=== PATIENT | male | born 1965 | race Caucasian/White ===

== ENCOUNTER 2016-09-12 11:50 | Emergency (ER) | payer MEDICARE ==
[~2016-09-12] VITALS: Ht 177.8 cm; Wt 104.0 kg
[~2016-09-12 11:50] MED LIST: ATOR80TA PO; BENZ1TAB PO; BUPR150T3 PO; CLOP75 PO; PERP8TAB7 PO; SERT100 PO; ST JTAB PO
[2016-09-12 12:06] VITALS: BP 108/80; PULSE 113; RESP 18; TEMP 98.8; O2SAT 97
[2016-09-12] MEDS ORDERED: SERT-129 PO (12:32)
[2016-09-12] MEDS ORDERED: ATOR1TAB18 PO (12:32)
[2016-09-12] MEDS ORDERED: BUPR150T3 PO (12:32)
[2016-09-12] MEDS ORDERED: ASPI81CH CHEW (12:32)
[2016-09-12] MEDS ORDERED: PERP8TAB4 PO (12:32)
[2016-09-12] MEDS ORDERED: BENZ2TAB PO (12:32)
[2016-09-12] MEDS ORDERED: PRIL20CA9 PO (12:32)
[2016-09-12] MEDS ORDERED: PRED20 PO (12:48)
--- NOTE | 2016-09-12 12:56 | PD ---
HPI Chief Complaint: Cold / Flu Symptoms Time Seen by Provider: 12:48 Travel History International Travel<30 days: No Contact w/Intl Traveler<30days: No Traveled to known affect area: No History of Present Illness HPI 51-year-old male presents to the emergency room for evaluation of nonproductive cough and sore throat for the past 2 days. Symptoms started yesterday. States coughing is deep, dry, and hacking. Has kept him up at night. He has been taking Mucinex without relief in symptoms. Denies fever, chills, nausea, vomiting, congestion, and earache. Denies chest pain or shortness of breath. Patient reports persistent elevated heart rate since having a heart attack 2 years ago. EMR confirms. Denies history of diabetes. PFSH Past Medical History Hx Anticoagulant Therapy: Yes (81 mg asa) Arthritis: No Asthma: No Blood Disorders: No Bipolar Disorder: Yes Anxiety: Yes Depression: Yes Heart Rhythm Problems: No Cancer: No Cardiovascular Problems: Yes (2014; 2 stents) High Cholesterol: Yes Chest Pain: No Congestive Heart Failure: No COPD: No Cerebrovascular Accident: No Diabetes: No Diminished Hearing: No Endocrine: No Gastrointestinal Disorders: Yes GERD: No Genitourinary: No Headaches: No Hepatitis: No Hiatal Hernia: No Hypertension: No Kidney Stones: No Musculoskeletal: No Neurologic: No Psychiatric: Yes (DEPRESSION, BIPOLAR) Reproductive: No Respiratory: No Migraines: No Myocardial Infarction: No Renal Failure: No Schizophrenia: Yes Seizures: No Sleep Apnea: No Ulcer: No Influenza Vaccination: No Past Surgical History Abdominal Surgery: No Appendectomy: No Cardiac Surgery: No Cholecystectomy: No Ear Surgery: No Endocrine Surgery: No Eye Surgery: No Genitourinary Surgery: No Gynecologic Surgery: No Neurologic Surgery: No Oral Surgery: No Thoracic Surgery: No Other Surgery: No Social History Alcohol Use: No Tobacco Use: No Substance Use: No Allergies-Medications (Allergen,Severity, Reaction): Coded Allergies: No Known Allergies (Verified , 09/12/16) Reported Meds & Prescriptions Reported Meds & Active Scripts Active Reported Prilosec (Omeprazole) 20 Mg Cap 20 Mg PO DAILY Sertraline (Sertraline HCl) 100 Mg Tab 100 Mg PO DAILY Perphenazine 8 Mg Tab 8 Mg PO DAILY Bupropion HCl ER 24 HR (Bupropion HCl) 150 Mg Tab 150 Mg PO DAILY Benztropine (Benztropine Mesylate) 2 Mg Tab 2 Mg PO HS Atorvastatin (Atorvastatin Calcium) 80 Mg Tab 80 Mg PO HS Aspirin 81 Mg Chew 81 Mg CHEW DAILY Review of Systems Except as stated in HPI: all other systems reviewed are Neg Physical Exam Narrative GENERAL: Well-nourished, well-developed male in no acute distress. Afebrile. Ambulatory. SKIN: Warm and dry. HEAD: Normocephalic. EYES: No scleral icterus. No injection or drainage. ENT: Mucosa pink and moist. No erythema or exudates. No uvular edema. No uvular , palatal, or tonsillar deviation. Airway patent. Nasal turbinates appear normal without nasal blood, purulent drainage or septal hematoma. EARS: Bilateral pinnae and external canals appear within normal limits. Bilateral tympanic membranes without erythema, dullness or perforation. NECK: Supple, trachea midline. No JVD or lymphadenopathy. CARDIOVASCULAR: Tachycardic. Regular rhythm without murmurs, gallops, or rubs. RESPIRATORY: Breath sounds equal bilaterally. No accessory muscle use. No crackles, rales, wheezes, or rhonchi. Data Data Last Documented VS Vital Signs Date Time Temp Pulse Resp B/P Pulse Ox O2 Delivery O2 Flow Rate FiO2 09/12/16 12:06 98.8 113 18 108/80 97 MDM Medical Decision Making Medical Screen Exam Complete: Yes Emergency Medical Condition: Yes Medical Record Reviewed: Yes Differential Diagnosis Bronchitis versus sinusitis versus upper respiratory infection Narrative Course 51-year-old male presents to the emergency room for evaluation of nonproductive cough and sore throat since yesterday. No history of fever at home. Patient is afebrile and well-appearing in the emergency room. Vital signs stable; patient is mildly tachycardic at baseline. Coughing occasionally. No indication of bacterial infection in the ears or throat. Lung sounds are clear and equal bilaterally. Patient had one mild wheeze that he was able to clear with cough. No indication for antibiotics at this time. He'll be discharged with prescription for prednisone and told to follow up with a primary care physician or return to the emergency room for worsening symptoms. He understands and agrees to plan. Diagnosis Primary Impression: Bronchitis Referrals: Primary Care Physician Patient Instructions: Acute Bronchitis (ED), General Instructions Additional Instructions: Rest and drink plenty of fluids. Take prednisone as directed, until gone. Follow-up with a primary care physician. Return to the emergency room for worsening symptoms. Scripts Prednisone 20 Mg Tab40 Mg PO DAILY 5 Days Ref 0 Prov:Liya Harris MD 09/12/16 Disposition: 01 DISCHARGE HOME Condition: Stable Doretha Dias Sep 12, 2016 12:55
== END 2016-09-12 13:28 | disposition home or self-care (01) ==
LOC: PHEFT 11:50
DX: J20.9 Acute bronchitis, unspecified (principal)
CPT/HCPCS: 99283

== ENCOUNTER 2016-09-21 15:48 | Emergency (ER) | payer MEDICARE ==
[~2016-09-21] VITALS: Ht 177.8 cm; Wt 100.0 kg
[~2016-09-21 15:48] MED LIST changes: +ASPI81CH CHEW; +ATOR1TAB18 PO; -ATOR80TA PO; -BENZ1TAB PO; +BENZ2TAB PO; -CLOP75 PO; +PERP8TAB4 PO; -PERP8TAB7 PO; +PRED20 PO; +PRIL20CA9 PO; +SERT-129 PO; -SERT100 PO; -ST JTAB PO
[2016-09-21 15:50] VITALS: BP 117/78; PULSE 104; RESP 16; TEMP 98.4; O2SAT 96
[2016-09-21] MEDS ORDERED: ALBUAER3 INH (17:13)
[2016-09-21] MEDS ORDERED: AZIT500T2 PO (17:13)
[2016-09-21] MEDS ORDERED: BENZ100 PO (17:13)
[2016-09-21] MEDS ORDERED: PRED-503 PO (17:13)
[2016-09-21] MEDS ORDERED: predniSONE 20 MG TAB PO ONE (17:15)
[2016-09-21] MEDS ORDERED: RESP: ALBUTEROL 2.5 MG/3 ML NEB (SCH) INH ONE (17:15)
--- NOTE | 2016-09-21 17:15 | PD ---
HPI Chief Complaint: Cold / Flu Symptoms Time Seen by Provider: 17:11 Travel History International Travel<30 days: No Contact w/Intl Traveler<30days: No Traveled to known affect area: No History of Present Illness HPI 51-year-old male presents to the emergency Department with complaint of continued cough and chest congestion for 10 days. He was seen at [facility] emergency department 10 days ago, diagnosed with bronchitis, and was treated with a five-day course of steroids with no improvement in symptoms. He tried following up with his primary care provider but they could not get him in. Reports continuous aggravated productive cough. Denies nasal congestion, ear pain, throat pain. Denies chest pain or shortness of breath. Denies hemoptysis. is also sick with similar symptoms. No known relieving or aggravating factors. Denies history of asthma, COPD. Denies tobacco use. History of heart attack. Takes aspirin daily. Dr. Joel is primary care provider. No known allergies. No other modifying factors or associated signs and symptoms. PFSH Past Medical History Hx Anticoagulant Therapy: Yes (81 ASA) Arthritis: No Asthma: No Blood Disorders: No Bipolar Disorder: Yes Anxiety: Yes Depression: Yes Heart Rhythm Problems: No Cancer: No Cardiovascular Problems: Yes (2015 [place] WITH 2 STENTS) High Cholesterol: Yes Chest Pain: No Congestive Heart Failure: No COPD: No Cerebrovascular Accident: No Diabetes: No Diminished Hearing: No Endocrine: No Gastrointestinal Disorders: Yes GERD: No Genitourinary: No Headaches: No Hepatitis: No Hiatal Hernia: No Hypertension: No Kidney Stones: No Musculoskeletal: No Neurologic: No Psychiatric: Yes (DEPRESSION, BIPOLAR) Reproductive: No Respiratory: No Migraines: No Myocardial Infarction: No Renal Failure: No Schizophrenia: Yes Seizures: No Sleep Apnea: No Ulcer: No Past Surgical History Abdominal Surgery: No Appendectomy: No Cardiac Surgery: No Cholecystectomy: No Ear Surgery: No Endocrine Surgery: No Eye Surgery: No Genitourinary Surgery: No Gynecologic Surgery: No Neurologic Surgery: No Oral Surgery: No Thoracic Surgery: No Other Surgery: No Social History Alcohol Use: No Tobacco Use: No Substance Use: No Allergies-Medications (Allergen,Severity, Reaction): Coded Allergies: No Known Allergies (Verified , 09/21/16) Reported Meds & Prescriptions Reported Meds & Active Scripts Active Proair Hfa 8.5 GM Inh (Albuterol Sulfate) 90 Mcg/Act Aer 2 Puff INH Q4-6H PRN 108 mcg/actuation Tessalon Perles (Benzonatate) 100 Mg Cap 100 Mg PO TID PRN Azithromycin 500 Mg Tab 500 Mg PO DAILY Deltasone (Prednisone) 20 Mg Tab 40 Mg PO DAILY 4 Days start 09/22/2016 Prednisone 20 Mg Tab 40 Mg PO DAILY 5 Days Reported Prilosec (Omeprazole) 20 Mg Cap 20 Mg PO DAILY Sertraline (Sertraline HCl) 100 Mg Tab 100 Mg PO DAILY Perphenazine 8 Mg Tab 8 Mg PO DAILY Bupropion HCl ER 24 HR (Bupropion HCl) 150 Mg Tab 150 Mg PO DAILY Benztropine (Benztropine Mesylate) 2 Mg Tab 2 Mg PO HS Atorvastatin (Atorvastatin Calcium) 80 Mg Tab 80 Mg PO HS Aspirin 81 Mg Chew 81 Mg CHEW DAILY Review of Systems Except as stated in HPI: all other systems reviewed are Neg Physical Exam Narrative GENERAL: Well-nourished, well-developed male patient, in no acute distress SKIN: Warm and dry. HEAD: Atraumatic. Normocephalic. EYES: Pupils equal and round. No scleral icterus. No injection or drainage. ENT: Mucosa pink and moist. Airway patent. EARS: Bilateral pinnae and external canals appear within normal limits. NECK: Trachea midline. No lymphadenopathy. CARDIOVASCULAR: Regular rate and rhythm. No murmur appreciated. RESPIRATORY: No accessory muscle use. Lungs decreased to bilateral bases to auscultation. Breath sounds equal bilaterally. No retractions or tachypnea. No Audible wheezing noted. Frequent dry cough during physical exam. GASTROINTESTINAL: Abdomen soft, non-tender, nondistended. Hepatic and splenic margins not palpable. Bowel sounds are active 4 quadrants. MUSCULOSKELETAL: No obvious deformities. No clubbing. No cyanosis. No edema. NEUROLOGICAL: Awake and alert. Oriented 3. No obvious cranial nerve deficits. Motor grossly within normal limits. Normal speech. Moves all extremities. 5/5 strength to all extremities. PSYCHIATRIC: Appropriate mood and affect; insight and judgment normal. Data Data Last Documented VS Vital Signs Date Time Temp Pulse Resp B/P Pulse Ox O2 Delivery O2 Flow Rate FiO2 09/21/16 15:50 98.4 104 16 117/78 96 Room Air Orders Chest, Single Ap (09/21/16 17:10) Prednisone (Deltasone) (09/21/16 17:15) Albuterol Neb (Albuterol Neb) (09/21/16 17:15) [facility] Medical Decision Making Medical Screen Exam Complete: Yes Emergency Medical Condition: Yes Medical Record Reviewed: Yes Differential Diagnosis Bronchitis, pneumonia, viral illness Narrative Course 51-year-old male with cough and chest congestion 10 days. He was seen at [facility] on August 2018 given a five-day course of prednisone for bronchitis. Patient is afebrile denies fever, chills, nausea, vomiting. His lungs are decreased to bilateral bases. He has persistent dry cough during physical exam. Denies chest pain or shortness of breath. Albuterol nebulizer 1 and Deltasone ordered. Chest x-ray ordered. 174: Chest x-ray with no acute disease. Patient reports improvement in symptoms. Cough exacerbation has seemed to decreased while in the room on reexamination. Azithromycin, Deltasone, Pro Air inhaler, Tessalon Perles prescribed for home. Patient is medically cleared and stable for discharge. Discussed reasons to return to the emergency department. Instructed patient to follow up with primary care provider. Patient agrees with treatment plan. The patients vital signs are stable and the patient is stable for outpatient follow- up and treatment. Patient discharged home, stable and in no acute distress. Diagnosis Primary Impression: Bronchitis Referrals: Primary Care Physician Patient Instructions: Acute Bronchitis (ED), General Instructions Departure Forms: Tests/Procedures, Work Release Enter return to work date: Sep 23, 2016 Additional Instructions: Use Albuterol inhaler as prescribed Take oral steroids as prescribed and complete full course Use Tessalon Perles as prescribed to decrease coughing spasms [id number] decongestants or antihistamines as directed and as needed for symptom management Your cough can last 4-6 weeks Drink plenty of fluids to prevent dehydration Use hot air humidifier to decrease cough exacerbation Turn off ceiling fans and sleep with head of bed elevated Avoid triggers such as second hand smoke, dust, known allergens Follow-up with your primary care provider Return to the emergency department immediately with worsening of symptoms Med/Other Pt SpecificInfo: Prescription(s) given Scripts Albuterol 8.5 GM Inh (Proair Hfa 8.5 GM Inh)90 Mcg/Act Aer2 Puff INH Q4-6H PRN ( SOB/WHEEZING) #1 INHALER Ref 0 108 mcg/actuation Prov:Angelia Lou 09/21/16 Benzonatate (Tessalon Perles)100 Mg [id number] Mg PO TID PRN (COUGH) #20 CAP Ref 0 Prov:Angelia Lou 09/21/16 Azithromycin 500 Mg [id number] Mg PO DAILY #5 TAB Ref 0 Prov:Angelia Lou 09/21/16 Prednisone (Deltasone)20 Mg Tab40 Mg PO DAILY 4 Days Ref 0 start 09/22/2016 Prov:Angelia Lou 09/21/16 Disposition: 01 DISCHARGE HOME Condition: Stable Angelia Lou Sep 21, 2016 17:15
--- NOTE | 2016-09-21 17:34 | RADRPT ---
EXAM DATE/TIME: 09/21/2016 17:20 [facility] COMPARISON: CHEST SINGLE AP, August 06, 2015, 8:02. INDICATIONS : Cough. MEDICAL HISTORY : None. SURGICAL HISTORY : None. ENCOUNTER: Initial ACUITY: 2 weeks PAIN SCORE: 0/10 LOCATION: Bilateral chest FINDINGS: A single view of the chest demonstrates the lungs to be symmetrically aerated without evidence of mas s, infiltrate or effusion. The cardiomediastinal contours are unremarkable. Osseous structures are intact. CONCLUSION: No acute disease. Matheus De La Garza MD on September 21, 2016 at 17:32 Board Certified Radiologist. This report was verified electronically.
== END 2016-09-21 18:07 | disposition home or self-care (01) ==
LOC: NEPB 15:48
DX: J40 Bronchitis, not specified as acute or chronic (principal); I25.2 Old myocardial infarction; Z79.82 Long term (current) use of aspirin
CPT/HCPCS: 71010; 94664; 99283; J7512; J7613

== ENCOUNTER 2017-02-21 18:33 | Inpatient (IN) | payer MEDICARE ==
[~2017-02-21] VITALS: Ht 177.8 cm; Wt 104.0 kg
[~2017-02-21 18:33] MED LIST changes: +ALBUAER3 INH; +AZIT500T2 PO; +BENZ100 PO; +PRED-503 PO
[2017-02-21 18:35] VITALS: BP 119/79; PULSE 118; RESP 20; TEMP 98.5; O2SAT 94
--- NOTE | 2017-02-21 19:44 | PD ---
HPI Chief Complaint: Cardiac Complaint Time Seen by Provider: 19:44 Travel History International Travel<30 days: No Contact w/Intl Traveler<30days: No Traveled to known affect area: No History of Present Illness HPI 51-year-old male with history of CAD, cardiac catheter with stent placement in 2014, bipolar disorder, presents to the emergency department today for evaluation at the instruction of his cardiovascular surgeon Dr. Joel. Patient states over the last day or so he has been having intermittent heaviness in his bilateral upper extremities. It is not exacerbated with activity or alleviated with rest. He states it doesn't matter what he is doing when it occurs. Last episode was this morning. It is not associated with chest pain, shortness of breath, nausea, vomiting, or lightheadedness. Patient states the symptom is similar to when he had his first VT. He has had no recent illnesses, fever, chills. No other symptoms to report. PFSH Past Medical History Hx Anticoagulant Therapy: Yes (81 ASA) Arthritis: No Asthma: No Blood Disorders: No Bipolar Disorder: Yes Anxiety: Yes Depression: Yes Heart Rhythm Problems: No Cancer: No Cardiovascular Problems: Yes High Cholesterol: Yes Chest Pain: No Congestive Heart Failure: No COPD: No Cerebrovascular Accident: No Diabetes: No Diminished Hearing: No Endocrine: No Gastrointestinal Disorders: Yes GERD: No Genitourinary: No Headaches: No Hepatitis: No Hiatal Hernia: No Hypertension: No Kidney Stones: No Musculoskeletal: No Neurologic: No Psychiatric: Yes (DEPRESSION, BIPOLAR) Reproductive: No Respiratory: No Migraines: No Myocardial Infarction: No Renal Failure: No Schizophrenia: Yes Seizures: No Sleep Apnea: No Ulcer: No Past Surgical History Abdominal Surgery: No Appendectomy: No Cardiac Surgery: No Cholecystectomy: No Ear Surgery: No Endocrine Surgery: No Eye Surgery: No Genitourinary Surgery: No Gynecologic Surgery: No Neurologic Surgery: No Oral Surgery: No Thoracic Surgery: No Other Surgery: No Social History Alcohol Use: No Tobacco Use: No Substance Use: No Allergies-Medications (Allergen,Severity, Reaction): Coded Allergies: No Known Allergies (Verified , 02/21/17) Reported Meds & Prescriptions Reported Meds & Active Scripts Active Proair Hfa 8.5 GM Inh (Albuterol Sulfate) 90 Mcg/Act Aer 2 Puff INH Q4-6H PRN 108 mcg/actuation Tessalon Perles (Benzonatate) 100 Mg Cap 100 Mg PO TID PRN Reported Perphenazine 2 Mg Tab 2 Mg PO HS Sertraline (Sertraline HCl) 100 Mg Tab 100 Mg PO DAILY Bupropion HCl ER 24 HR (Bupropion HCl) 150 Mg Tab 150 Mg PO DAILY Atorvastatin (Atorvastatin Calcium) 80 Mg Tab 80 Mg PO HS Aspirin 81 Mg Chew 81 Mg CHEW DAILY Review of Systems Except as stated in HPI: all other systems reviewed are Neg Physical Exam Narrative GENERAL: Well-nourished female patient, in no acute distress SKIN: Focused skin assessment warm/dry. HEAD: Atraumatic. Normocephalic. EYES: Pupils equal and round. No scleral icterus. No injection or drainage. ENT: No nasal bleeding or discharge. Mucous membranes pink and moist. NECK: Trachea midline. No JVD. CARDIOVASCULAR: Tachycardic rate and rhythm. No murmur appreciated. RESPIRATORY: No accessory muscle use. Clear to auscultation. Breath sounds equal bilaterally. GASTROINTESTINAL: Abdomen soft, non-tender, nondistended. Hepatic and splenic margins not palpable. MUSCULOSKELETAL: No obvious deformities. No clubbing. No cyanosis. No edema. NEUROLOGICAL: Awake and alert. No obvious cranial nerve deficits. Motor grossly within normal limits. Normal speech. PSYCHIATRIC: Appropriate mood and affect; insight and judgment normal. Data Data Last Documented VS Vital Signs Date Time Temp Pulse Resp B/P Pulse Ox O2 Delivery O2 Flow Rate FiO2 02/21/17 21:00 110 21 109/80 95 Room Air 02/21/17 18:35 98.5 Orders Electrocardiogram (02/21/17 ) Electrocardiogram (02/21/17 19:37) Basic Metabolic Panel (Bmp) (02/21/17 19:37) Ckmb (Isoenzyme) Profile (02/21/17 19:37) Complete Blood Count With Diff (02/21/17 19:37) Magnesium (Mg) (02/21/17 19:37) Prothrombin Time / Inr (Pt) (02/21/17 19:37) Act Partial Throm Time (Ptt) (02/21/17 19:37) Troponin I (02/21/17 19:37) Chest, Single Ap (02/21/17 19:37) Ecg Monitoring (02/21/17 19:37) Bilateral Bp Monitoring (02/21/17 19:37) Iv Access Insert/Monitor (02/21/17 19:37) Oximetry (02/21/17 19:37) Oxygen Administration (02/21/17 19:37) Sodium Chloride 0.9% Flush (Ns Flush) (02/21/17 19:45) Labs Laboratory Tests Test 02/21/17 20:00 White Blood Count 10.2 TH/MM3 Red Blood Count 4.98 MIL/MM3 Hemoglobin 14.2 GM/DL Hematocrit 43.0 % Mean Corpuscular Volume 86.3 FL Mean Corpuscular Hemoglobin 28.5 PG Mean Corpuscular Hemoglobin 33.0 % Concent Red Cell Distribution Width 14.3 % Platelet Count 392 TH/MM3 Mean Platelet Volume 7.4 FL Neutrophils (%) (Auto) 57.7 % Lymphocytes (%) (Auto) 29.0 % Monocytes (%) (Auto) 9.9 % Eosinophils (%) (Auto) 2.7 % Basophils (%) (Auto) 0.7 % Neutrophils # (Auto) 5.9 TH/MM3 Lymphocytes # (Auto) 3.0 TH/MM3 Monocytes # (Auto) 1.0 TH/MM3 Eosinophils # (Auto) 0.3 TH/MM3 Basophils # (Auto) 0.1 TH/MM3 CBC Comment DIFF FINAL Differential Comment Prothrombin Time 11.4 SEC Prothromb Time International 1.0 RATIO Ratio Activated Partial 24.8 SEC Thromboplast Time Sodium Level 137 MEQ/L Potassium Level 4.1 MEQ/L Chloride Level 103 MEQ/L Carbon Dioxide Level 26.9 MEQ/L Anion Gap 7 MEQ/L Blood Urea Nitrogen 13 MG/DL Creatinine 0.96 MG/DL Estimat Glomerular Filtration 82 ML/MIN Rate Random Glucose 94 MG/DL Calcium Level 9.3 MG/DL Magnesium Level 1.8 MG/DL Total Creatine Kinase 75 U/L Troponin I 0.24 NG/ML [facility] Medical Decision Making Medical Screen Exam Complete: Yes Emergency Medical Condition: Yes Medical Record Reviewed: Yes Differential Diagnosis ACS versus neuropathy versus radiculopathy versus anxiety Narrative Course 51-year-old male presents to the emergency department for evaluation. Patient describes his symptoms as a heaviness in his bilateral upper extremities. It is intermittent. Currently he is asymptomatic. His vital signs are stable. Tachycardic. EKG is reviewed by myself and my attending physician with no ST elevation or depression. EKG compared to in 2015 was abnormal at that time. Laboratory Tests Test 02/21/17 20:00 White Blood Count 10.2 TH/MM3 Red Blood Count 4.98 MIL/MM3 Hemoglobin 14.2 GM/DL Hematocrit 43.0 % Mean Corpuscular Volume 86.3 FL Mean Corpuscular Hemoglobin 28.5 PG Mean Corpuscular Hemoglobin 33.0 % Concent Red Cell Distribution Width 14.3 % Platelet Count 392 TH/MM3 Mean Platelet Volume 7.4 FL Neutrophils (%) (Auto) 57.7 % Lymphocytes (%) (Auto) 29.0 % Monocytes (%) (Auto) 9.9 % Eosinophils (%) (Auto) 2.7 % Basophils (%) (Auto) 0.7 % Neutrophils # (Auto) 5.9 TH/MM3 Lymphocytes # (Auto) 3.0 TH/MM3 Monocytes # (Auto) 1.0 TH/MM3 Eosinophils # (Auto) 0.3 TH/MM3 Basophils # (Auto) 0.1 TH/MM3 CBC Comment DIFF FINAL Differential Comment Prothrombin Time 11.4 SEC Prothromb Time International 1.0 RATIO Ratio Activated Partial 24.8 SEC Thromboplast Time Sodium Level 137 MEQ/L Potassium Level 4.1 MEQ/L Chloride Level 103 MEQ/L Carbon Dioxide Level 26.9 MEQ/L Anion Gap 7 MEQ/L Blood Urea Nitrogen 13 MG/DL Creatinine 0.96 MG/DL Estimat Glomerular Filtration 82 ML/MIN Rate Random Glucose 94 MG/DL Calcium Level 9.3 MG/DL Magnesium Level 1.8 MG/DL Total Creatine Kinase 75 U/L Troponin I 0.24 NG/ML I discussed the patient with Dr. Valentino, cardiovascular surgeon covering for Dr. Joel. He requests the patient be placed on a heparin drip and admitted to medicine for possible cardiac catheterization tomorrow. Diagnosis Primary Impression: Atypical chest pain Additional Impressions: Elevated troponin CAD (coronary artery disease) Qualified Code: I25.10 - Coronary artery disease involving [place] heart, angina presence unspecified, unspecified vessel or lesion type Admitting Information Admitting Physician Requests: Admit Condition: Stable BraedenFloresIrmajennifer ORDOÑEZ Feb 21, 2017 19:44
[2017-02-21] MEDS ORDERED: SODIUM CHLORIDE 0.9% FLUSH 10 ML FLUSH IVF PRN (19:45)
--- NOTE | 2017-02-21 19:57 | RADRPT ---
EXAM DATE/TIME: 02/21/2017 19:32 [facility] COMPARISON: CHEST SINGLE AP, September 21, 2016, 17:20. INDICATIONS : Chest discomfort and bilateral arm pain. MEDICAL HISTORY : Hypercholesterolemia. SURGICAL HISTORY : None. ENCOUNTER: Initial ACUITY: 2 days PAIN SCORE: 5/10 LOCATION: Bilateral chest FINDINGS: A single view of the chest demonstrates the lungs to be symmetrically aerated without evidence of mas s, infiltrate or effusion. The cardiomediastinal contours are unremarkable. Osseous structures are intact. CONCLUSION: No acute disease. Jamal Briggs MD FACR on February 21, 2017 at 19:56 Board Certified Radiologist. This report was verified electronically.
[2017-02-21] MEDS ORDERED: PERP2TAB18 PO (20:02)
[2017-02-21 20:03] VITALS: BP 109/75; PULSE 107; RESP 15; O2SAT 97
[2017-02-21 20:11] VITALS: BP 113/71; PULSE 107; RESP 15; O2SAT 95
[2017-02-21 20:22] LABS: AUTOMATED NEUTROPHIL # 5.9 TH/MM3 (1.8-7.7); BASOPHIL # 0.1 TH/MM3 (0-0.2); BASOPHIL % 0.7 % (0.0-2.0); EOSINOPHIL # 0.3 TH/MM3 (0-0.4); EOSINOPHIL % 2.7 % (0.0-4.0); HEMO FLAGS DIFF FINAL; MEAN CELL VOLUME 86.3 FL (80.0-100.0); MEAN CORPUSCULAR HEMOGLOBIN 28.5 PG (27.0-34.0); MONO % 9.9 % (0.0-8.0); NEUT % 57.7 % (16.0-70.0); PLATELET COUNT 392 TH/MM3 (150-450); RED BLOOD COUNT 4.98 MIL/MM3 (4.50-5.90); RED CELL DISTRIBUTION WIDTH 14.3 % (11.6-17.2); WHITE BLOOD COUNT 10.2 TH/MM3 (4.0-11.0)
[2017-02-21 20:38] LABS: BICARBONATE 26.9 MEQ/L (21.0-32.0); MAGNESIUM 1.8 MG/DL (1.5-2.5); POTASSIUM 4.1 MEQ/L (3.5-5.1)
[2017-02-21 20:44] LABS: APTT (PATIENT) 24.8 SEC (24.3-30.1); PROTHROMBIN TIME - PATIENT 11.4 SEC (9.8-11.6)
[2017-02-21 21:00] VITALS: BP 109/80; PULSE 110; RESP 21; O2SAT 95
[2017-02-21] MEDS ORDERED: HEPARIN-D5W INJ 250 ML IV SCH (21:45)
[2017-02-21] MEDS ORDERED: HEPARIN SODIUM - IV 10,000 UNITS/10 ML VIAL IV ONE (21:45)
[2017-02-21] MEDS ORDERED: SODIUM CHLORIDE 0.9% FLUSH 10 ML FLUSH IV FLUSH PRN (22:00)
[2017-02-21] MEDS ORDERED: NALOXONE HCL 0.4 MG/ML AMP IV PRN (22:00)
--- NOTE | 2017-02-21 22:55 | HHI.HP ---
[facility] Hermann Marroquin M.D. Admission Diagnosis BUE heaviness/atypical chest pain; elevated troponin Diagnoses: (1) NSTEMI (non-ST elevated myocardial infarction) Chief Complaint: Bilateral pain on underside of arms Travel History International Travel<30 Days: No Contact w/Intl Traveler <30 Da: No Traveled to Known Affected Are: No History of Present Illness Written by Eliz Linares, acting as scribe for Dr. Heard on 02/21/17 at 23:00. For the past week, the patient reports that he has been having intermittent pain under arms, not accompanied by shortness of breath, diaphoresis, nausea, or vomiting. He denies the pain radiating anywhere (though when portraying where his pain is, he says it's under the arms and then runs his hands down the inside of arms down to the wrist) and denies fever, shortness of breath, syncope , abdominal pain, black stools, or bloody stools. Dr. Joel was contacted via telephone by the patient and his and he told him to come to the hospital for evaluation because symptoms were similar to prior [place]. Review of Systems Except as stated in HPI: all other systems reviewed are Neg Past Family Social History Past Medical History CAD with stents x 2 (July 2015) - Plavix d/c'd in August CHF EF - 23 - 24% (per patient's ) without defibrillator Bipolar Disorder Schizophrenia Hyperlipidemia Denies diabetes mellitus, hypertension, atrial fibrillation, COPD emphysema, MYAH , liver problems, kidney problems, DVT, PE, CVA, seizures, or thyroid problems . Past Surgical History Stents x 16 July 2015 . Reported Medications Reported Meds & Active Scripts Active Proair Hfa 8.5 GM Inh (Albuterol Sulfate) 90 Mcg/Act Aer 2 Puff INH Q4-6H PRN 108 mcg/actuation Tessalon Perles (Benzonatate) 100 Mg Cap 100 Mg PO TID PRN Reported Perphenazine 2 Mg Tab 2 Mg PO HS Sertraline (Sertraline HCl) 100 Mg Tab 100 Mg PO DAILY Bupropion HCl ER 24 HR (Bupropion HCl) 150 Mg Tab 150 Mg PO DAILY Atorvastatin (Atorvastatin Calcium) 80 Mg Tab 80 Mg PO HS Aspirin 81 Mg Chew 81 Mg CHEW DAILY . Allergies: Coded Allergies: No Known Allergies (Verified , 02/21/17) Active Ordered Medications Current Medications Sodium Chloride (NS Flush) 2 ml UNSCH PRN IVF FLUSH AFTER USING IV ACCESS; Start 02/21/17 at 19:45; Stop 02/21/17 at 21:58; Status DC Heparin Sodium (Porcine) (Heparin Inj) 4,000 units ONCE ONCE IV Last administered on 02/21/17t 22:05; Start 02/21/17 at 21:45; Stop 02/21/17 at 21:46 ; Status DC Heparin Sodium (Porcine) (Heparin Inj) 5,000 units UNSCH PRN IV APTT LESS THAN 25; Start 02/22/17 at 03:45 Heparin Sodium (Porcine) 2500 units 2,500 units UNSCH PRN IV APTT 25 TO 39; Start 02/22/17 at 03:45 Heparin Sodium/ Dextrose (Heparin-D5W Inj) 250 ml @ 0 mls/hr TITRATE IV Last administered on 02/21/17t 22:10; Start 02/21/17 at 21:45 Sodium Chloride (NS Flush) 2 ml UNSCH PRN IV FLUSH FLUSH AFTER USING IV ACCESS ; Start 02/21/17 at 22:00 Sodium Chloride (NS Flush) 2 ml BID IV FLUSH ; Start 02/22/17 at 09:00 Naloxone HCl (Narcan Inj) 0.4 mg UNSCH PRN IV SEE LABEL COMMENTS; Start at 22:00 . Family History Mother with hypertension and reports a "bad heart" . Social History Tobacco: denies ever Alcohol: denies Illicit Drugs: denies . Physical Exam Vital Signs Vital Signs Date Time Temp Pulse Resp B/P Pulse Ox O2 Delivery O2 Flow Rate FiO2 02/21/17 21:00 110 21 109/80 95 Room Air 02/21/17 20:11 107 15 113/71 95 Room Air 02/21/17 20:03 108 17 97 Room Air 02/21/17 20:03 107 15 109/75 97 Room Air 02/21/17 20:03 97 Room Air 02/21/17 18:35 98.5 118 20 119/79 94 Room Air Physical Exam GENERAL: This is an anxious appearing male patient, in no apparent distress. SKIN: No rashes, ecchymoses or lesions. Cool and dry. HEAD: Atraumatic. Normocephalic. EYES: No scleral icterus. No injection or drainage. ENT: Nose without bleeding, purulent drainage. NECK: Trachea midline. No JVD or lymphadenopathy. CARDIOVASCULAR: Regular rate and rhythm without murmurs, gallops, or rubs. RESPIRATORY: Clear to auscultation. Breath sounds equal bilaterally. No wheezes , rales, or rhonchi. GASTROINTESTINAL: Abdomen soft, non-tender, nondistended. No guarding. MUSCULOSKELETAL: Extremities without clubbing, cyanosis, or edema. No calf tenderness. NEUROLOGICAL: Awake and alert. Motor and sensory grossly within normal limits. Normal speech. . . Laboratory Laboratory Tests Test 02/21/17 20:00 White Blood Count 10.2 Red Blood Count 4.98 Hemoglobin 14.2 Hematocrit 43.0 Mean Corpuscular Volume 86.3 Mean Corpuscular Hemoglobin 28.5 Mean Corpuscular Hemoglobin 33.0 Concent Red Cell Distribution Width 14.3 Platelet Count 392 Mean Platelet Volume 7.4 Neutrophils (%) (Auto) 57.7 Lymphocytes (%) (Auto) 29.0 Monocytes (%) (Auto) 9.9 Eosinophils (%) (Auto) 2.7 Basophils (%) (Auto) 0.7 Neutrophils # (Auto) 5.9 Lymphocytes # (Auto) 3.0 Monocytes # (Auto) 1.0 Eosinophils # (Auto) 0.3 Basophils # (Auto) 0.1 CBC Comment DIFF FINAL Differential Comment Prothrombin Time 11.4 Prothromb Time International 1.0 Ratio Activated Partial 24.8 Thromboplast Time Sodium Level 137 Potassium Level 4.1 Chloride Level 103 Carbon Dioxide Level 26.9 Anion Gap 7 Blood Urea Nitrogen 13 Creatinine 0.96 Estimat Glomerular Filtration 82 Rate Random Glucose 94 Calcium Level 9.3 Magnesium Level 1.8 Total Creatine Kinase 75 Troponin I 0.24 Result Diagram: 02/21/17199902/21/171999 Imaging Last Impressions Chest X-Ray 02/21/171936 Signed Impressions: Service Date/Time: Tuesday, February 21, 2017 19:32 - CONCLUSION: No acute disease. Jamal Briggs MD FACR . Assessment and Plan Problem List: (1) NSTEMI (non-ST elevated myocardial infarction) ICD Code: I21.4 Status: Acute Assessment and Plan NSTEMI - Initial Troponin I - 0.24 - NPO after midnight - cardiology consultation - monitor serial cardiac enzymes and EKGs - 12-lead EKG personally reviewed sinus tachycardia with anterolateral Q waves and intraventricular conduction delay noted - IV heparin drip - Continuous cardiac telemetry to monitor for cardiac arrhythmias - Monitor vital signs every 4 hours Schizophrenia/Bipolar disorder - continue home medications DVT prophylaxis - on IV heparin . Discussed Condition With ER physician, patient, patient's (an RN), and RN Physician Certification 2 Midnight Certification Type: Admission for Inpatient Services Order for Inpatient Services The services are ordered in accordance with Medicare regulations or non- Medicare payer requirements, as applicable. In the case of services not specified as inpatient-only, they are appropriately provided as inpatient services in accordance with the 2-midnight benchmark. Estimated LOS (days): 3 days is the estimated time the patient will need to remain in the hospital, assuming treatment plan goals are met and no additional complications. Post-Hospital Plan: Home Eliz Linares Feb 21, 2017 22:55
[2017-02-21 23:34] VITALS: BP 114/67; PULSE 112; TEMP 98.4; O2SAT 95
[2017-02-22] VITALS (19 sets, daily range): BP systolic 101–119; BP diastolic 67–78; PULSE 91–138; RESP 16–18; TEMP 97.6–98; O2SAT 92–98
[2017-02-22] MEDS ORDERED: ALBUTEROL SULFATE 90 MCG/ACT HFA 18 GM INHALER INH PRN (00:15)
[2017-02-22] MEDS ORDERED: BENZTROPINE MESYLATE 2 MG TAB PO ONE (00:15)
[2017-02-22] MEDS ORDERED: BENZ0.5T PO (00:22)
[2017-02-22] MEDS ORDERED: PERP8TAB16 PO (00:22)
[2017-02-22 03:34] LABS: AUTOMATED NEUTROPHIL # 5.9 TH/MM3 (1.8-7.7); BASOPHIL # 0.1 TH/MM3 (0-0.2); BASOPHIL % 0.5 % (0.0-2.0); EOSINOPHIL # 0.3 TH/MM3 (0-0.4); EOSINOPHIL % 2.6 % (0.0-4.0); HEMATOCRIT 39.1 % (39.0-51.0); HEMO FLAGS DIFF FINAL; LYMPH % 33.3 % (9.0-44.0); LYMPHOCYTE # 3.6 TH/MM3 (1.0-4.8); MEAN CELL VOLUME 85.8 FL (80.0-100.0); MEAN CORPUSCULAR HEMOGLOBIN 28.7 PG (27.0-34.0); MEAN CORPUSCULAR HGB CONC 33.5 % (32.0-36.0); MONO % 8.8 % (0.0-8.0); NEUT % 54.8 % (16.0-70.0); PLATELET COUNT 339 TH/MM3 (150-450); RED BLOOD COUNT 4.56 MIL/MM3 (4.50-5.90); WHITE BLOOD COUNT 10.7 TH/MM3 (4.0-11.0)
[2017-02-22 03:43] LABS: APTT (PATIENT) 34.1 SEC (24.3-30.1)
[2017-02-22] MEDS ORDERED: HEPARIN SODIUM - IV 10,000 UNITS/10 ML VIAL IV PRN ×2 (03:45)
[2017-02-22 03:51] LABS: BICARBONATE 27.9 MEQ/L (21.0-32.0); POTASSIUM 3.8 MEQ/L (3.5-5.1)
[2017-02-22] MEDS ORDERED: SODIUM CHLOR 0.9% 1000 ML INJ 1,000 ML IV SCH (07:54)
--- NOTE | 2017-02-22 07:55 | PD.CONS ---
HPI Service CV Consult Requested By Reason for Consult chest pain Primary Care Physician Hermann Marroquin M.D. History of Present Illness Here with CAD s/p STEMI s/p PCI LAD with residual disease in a small diagonal and OM (July 2015), ischemia cardiomyopathy EF 35 to 40%, HTN and hyperlipidemia admitted for angina. He states for the past week he has been having intermittent bilateral upper extremity pain that is similar to that which he had prior to his MT. He states it is nearly everyday. He denies any associated symptoms. There are no precipitating or alleviating factors. He states it lasts hours. (Jw Sarmiento) Review of Systems Consitutional: DENIES: Fatigue, Fever, Chills, Weight gain, Weight loss Eyes: DENIES: Amaurosis Fugax, Change in vision HEENT: DENIES: Lightheadedness, Change in hearing Respiratory: DENIES: See HPI, Cough, Snoring, Shortness of breath, Wheezing, Sputum production Cardiovascular: DENIES: See HPI, Chest pain, Palpitations, Syncope, Tachycardia Gastrointestinal: DENIES: Nausea, Vomiting, Change in bowel habits, Reflux, Bloody stools, Melena Genitourinary: DENIES: Urinary incontinence, Difficulty voiding Integumentary: DENIES: Rash Neurologic: DENIES: Tingling or numbness, Memory problems, Poor Balance, Stroke symptoms Musculoskeletal: DENIES: Joint pain, Muscle pain, Limited range of motion, Back pain Psychiatric: DENIES: Anxiety, Depression, Sleep disturbances Hematologic: DENIES: Bruising tendencies, Bleeding tendencies Endocrine: DENIES: Weight gain, Weight loss, Thyroid disease (Jw Sarmiento ) Past Family Social History Allergies: Coded Allergies: No Known Allergies (Verified , 02/21/17) Past Medical History see HPI bipolar disorder schizophrenia Past Surgical History see HPI Reported Medications Reported Meds & Active Scripts Active Proair Hfa 8.5 GM Inh (Albuterol Sulfate) 90 Mcg/Act Aer 2 Puff INH Q4-6H PRN 108 mcg/actuation Tessalon Perles (Benzonatate) 100 Mg Cap 100 Mg PO TID PRN Reported Perphenazine 8 Mg Tablet 8 Mg PO HS Benztropine (Benztropine Mesylate) 0.5 Mg Tab 2 Mg PO HS Sertraline (Sertraline HCl) 100 Mg Tab 100 Mg PO DAILY Bupropion HCl ER 24 HR (Bupropion HCl) 150 Mg Tab 150 Mg PO DAILY Atorvastatin (Atorvastatin Calcium) 80 Mg Tab 80 Mg PO HS Aspirin 81 Mg Chew 81 Mg CHEW DAILY Active Ordered Medications Current Medications Medications (Trade) Dose Ordered Sig/Chandan Route Start Time Stop Time Status Last Admin (Heparin Inj) 5,000 units UNSCH PRN IV 02/22/17 03:45 Heparin Sodium (Porcine) 2500 units 2,500 units UNSCH PRN IV 02/22/17 03:45 (Heparin-D5W Inj) 250 ml @ 0 mls/hr TITRATE IV 02/21/17 21:45 02/21/17 22:10 (NS Flush) 2 ml UNSCH PRN IV FLUSH 02/21/17 22:00 (NS Flush) 2 ml BID IV FLUSH 02/22/17 09:00 (Narcan Inj) 0.4 mg UNSCH PRN IV 02/21/17 22:00 (Ventolin Hfa Inh) 2 puff Q6HR PRN INH 02/22/17 00:15 (Aspirin Chew) 81 mg DAILY CHEW 02/22/17 09:00 (Lipitor) 80 mg HS PO 02/22/17 21:00 (Wellbutrin Sr) 150 mg DAILY PO 02/22/17 09:00 (Zoloft) 100 mg DAILY PO 02/22/17 09:00 Family History noncontributory Social History never smoker denies alcohol or substance abuse (Jw Sarmiento) Physical Exam Vital Signs Vital Signs Date Time Temp Pulse Resp B/P Pulse Ox O2 Delivery O2 Flow Rate FiO2 02/22/17 06:00 98 02/22/17 05:14 92 02/22/17 04:34 91 02/22/17 03:28 98 02/22/17 03:02 98.0 99 101/67 92 02/22/17 02:00 98 02/22/17 01:00 100 02/22/17 00:23 104 02/22/17 00:00 138 02/21/17 23:34 98.4 112 114/67 95 02/21/17 21:00 110 21 109/80 95 Room Air 02/21/17 20:11 107 15 113/71 95 Room Air 02/21/17 20:03 108 17 97 Room Air 02/21/17 20:03 107 15 109/75 97 Room Air 02/21/17 20:03 97 Room Air 02/21/17 18:35 98.5 118 20 119/79 94 Room Air Physical Exam GENERAL: Well-nourished, well-developed patient in no apparent distress. NECK: No JVD. No carotid bruit. CARDIOVASCULAR: Regular rate and rhythm. S1/S2 no murmur, rub, or gallop. RESPIRATORY: No accessory muscle use. Clear to auscultation. Breath sounds equal bilaterally. GASTROINTESTINAL: Abdomen soft, non-tender, nondistended. MUSCULOSKELETAL: Extremities without clubbing, cyanosis, or edema. Laboratory Laboratory Tests Test 02/21/17 02/22/17 20:00 03:03 White Blood Count 10.2 10.7 Red Blood Count 4.98 4.56 Hemoglobin 14.2 13.1 Hematocrit 43.0 39.1 Mean Corpuscular Volume 86.3 85.8 Mean Corpuscular Hemoglobin 28.5 28.7 Mean Corpuscular Hemoglobin 33.0 33.5 Concent Red Cell Distribution Width 14.3 14.0 Platelet Count 392 339 Mean Platelet Volume 7.4 7.4 Neutrophils (%) (Auto) 57.7 54.8 Lymphocytes (%) (Auto) 29.0 33.3 Monocytes (%) (Auto) 9.9 8.8 Eosinophils (%) (Auto) 2.7 2.6 Basophils (%) (Auto) 0.7 0.5 Neutrophils # (Auto) 5.9 5.9 Lymphocytes # (Auto) 3.0 3.6 Monocytes # (Auto) 1.0 0.9 Eosinophils # (Auto) 0.3 0.3 Basophils # (Auto) 0.1 0.1 CBC Comment DIFF FINAL DIFF FINAL Differential Comment Prothrombin Time 11.4 Prothromb Time International 1.0 Ratio Activated Partial 24.8 34.1 Thromboplast Time Sodium Level 137 141 Potassium Level 4.1 3.8 Chloride Level 103 105 Carbon Dioxide Level 26.9 27.9 Anion Gap 7 8 Blood Urea Nitrogen 13 12 Creatinine 0.96 0.90 Estimat Glomerular Filtration 82 89 Rate Random Glucose 94 93 Calcium Level 9.3 8.7 Magnesium Level 1.8 Total Creatine Kinase 75 85 Troponin I 0.24 0.31 (Jw Sarmiento) Result Diagram: 02/22/1730202/22/17 0303 Assessment and Plan Problem List: (1) NSTEMI (non-ST elevated myocardial infarction) Assessment and Plan Being that his symptoms are very similar to previous and troponin are elevated the next best diagnostic test is coronary angiogram. Continue ASA. As fo is cardiomyopathy he is unable to tolerate MISTY-I or BB secondary to hypotension hyperlipidemia - on statin (Jw Sarmiento) Assessment and Plan NSTEMI - suggestive symptoms in setting of prior CAD PCI LAD secondary to STEMI. plan for LHC via radial continue medical therapy. 2d echo for LVEF (Laith Valentino MD) Jw Sarmiento Feb 22, 2017 07:55 Laith Valentino MD Feb 22, 2017 10:12
[2017-02-22] MEDS ORDERED: MIDAZOLAM HCL 2 MG/2 ML VIAL IV SCH (08:00)
[2017-02-22] MEDS ORDERED: SODIUM CHLORIDE 0.9% FLUSH 10 ML FLUSH IV FLUSH SCH (09:00)
[2017-02-22] MEDS ORDERED: SERTRALINE HCL 100 MG TAB PO SCH (09:00)
[2017-02-22] MEDS ORDERED: ASPIRIN 81 MG CHEW TAB CHEW SCH (09:00)
[2017-02-22] MEDS ORDERED: buPROPion HCL 150 MG SUSTAINED RELEASE TAB PO SCH (09:00)
--- NOTE | 2017-02-22 09:32 | HHI.PR ---
Subjective Remarks resting comfortably with no distress. no chest pain or sob at the moment. no other complaints. Objective Vitals Vital Signs Date Time Temp Pulse Resp B/P Pulse Ox O2 Delivery O2 Flow Rate FiO2 02/22/17 06:00 98 02/22/17 05:14 92 02/22/17 04:34 91 02/22/17 03:28 98 02/22/17 03:02 98.0 99 101/67 92 02/22/17 02:00 98 02/22/17 01:00 100 02/22/17 00:23 104 02/22/17 00:00 138 02/21/17 23:34 98.4 112 114/67 95 02/21/17 21:00 110 21 109/80 95 Room Air 02/21/17 20:11 107 15 113/71 95 Room Air 02/21/17 20:03 108 17 97 Room Air 02/21/17 20:03 107 15 109/75 97 Room Air 02/21/17 20:03 97 Room Air 02/21/17 18:35 98.5 118 20 119/79 94 Room Air I/O 02/21/17 02/21/17 02/21/17 02/22/17 02/22/17 02/22/17 07:00 15:00 23:00 07:00 15:00 23:00 Intake Total 120 ml Output Total 500 ml Balance -380 ml Intake Oral 120 ml Output Urine Total 500 ml Result Diagram: 02/22/1730202/22/17 030 Imaging Last Impressions Chest X-Ray 02/21/171936 Signed Impressions: Service Date/Time: Tuesday, February 21, 2017 19:32 - CONCLUSION: No acute disease. Jamal Briggs MD FACR Objective Remarks GENERAL: This is a well-nourished, well-developed patient, in no apparent distress. CARDIOVASCULAR: Regular rate and regular rhythm without murmurs, gallops, or rubs. RESPIRATORY: Clear to auscultation. Breath sounds equal bilaterally. No wheezes , rales, or rhonchi. GASTROINTESTINAL: Abdomen soft, non-tender, nondistended. Normal, active bowel sounds MUSCULOSKELETAL: Extremities without clubbing, cyanosis, or edema. NEURO: Alert & Oriented x4 to person, place, time, situation. Moves all ext x4 Medications and IVs Current Medications Sodium Chloride (NS Flush) 2 ml UNSCH PRN IVF FLUSH AFTER USING IV ACCESS; Start 02/21/17 at 19:45; Stop 02/21/17 at 21:58; Status DC Heparin Sodium (Porcine) (Heparin Inj) 4,000 units ONCE ONCE IV Last administered on 02/21/17 22:05; Start 02/21/17 at 21:45; Stop 02/21/17 at 21:46 ; Status DC Heparin Sodium (Porcine) (Heparin Inj) 5,000 units UNSCH PRN IV APTT LESS THAN 25; Start 02/22/17 at 03:45 Heparin Sodium (Porcine) 2500 units 2,500 units UNSCH PRN IV APTT 25 TO 39; Start 02/22/17 at 03:45 Heparin Sodium/ Dextrose (Heparin-D5W Inj) 250 ml @ 0 mls/hr TITRATE IV Last administered on 02/21/17 22:10; Start 02/21/17 at 21:45 Sodium Chloride (NS Flush) 2 ml UNSCH PRN IV FLUSH FLUSH AFTER USING IV ACCESS ; Start 02/21/17 at 22:00 Sodium Chloride (NS Flush) 2 ml BID IV FLUSH Last administered on 02/22/17 07: 48; Start 02/22/17 at 09:00 Naloxone HCl (Narcan Inj) 0.4 mg UNSCH PRN IV SEE LABEL COMMENTS; Start at 22:00 Albuterol Sulfate (Ventolin Hfa Inh) 2 puff Q6HR PRN INH SOB/WHEEZING; Start at 00:15 Aspirin (Aspirin Chew) 81 mg DAILY CHEW Last administered on 02/22/17 07:47; Start 02/22/17 at 09:00 Atorvastatin Calcium (Lipitor) 80 mg HS PO ; Start 02/22/17 at 21:00 Bupropion HCl (Wellbutrin Sr) 150 mg DAILY PO Last administered on 02/22/17 07 :47; Start 02/22/17 at 09:00 Sertraline HCl (Zoloft) 100 mg DAILY PO Last administered on 02/22/17 07:47; Start 02/22/17 at 09:00 Benztropine Mesylate 2 mg 2 mg ONCE ONCE PO Last administered on 02/22/17 01: 13; Start 02/22/17 at 00:15; Stop 02/22/17 at 00:16; Status DC Sodium Chloride (NS 1000 ml Inj) 1,000 ml @ 30 mls/hr Q24H IV ; Start 02/22/17 at 07:54; Stop 02/27/17 at 07:53 Midazolam HCl (Versed Inj) 1 mg [employer] IV ; Start 02/22/17 at 08:00; Stop at 07:59 A/P Assessment and Plan NSTEMI -continue aspirin - IV heparin drip - Continuous cardiac telemetry to monitor for cardiac arrhythmias - cardiology consult appreciated and likely cardiac cath later today. Schizophrenia/Bipolar disorder - continue home medications DVT prophylaxis - on IV heparin Discharge Planning when cleared by cardiology. Crow Awad MD Feb 22, 2017 09:32
--- NOTE | 2017-02-22 09:57 | EKG ---
Date Performed: 02/22/2017 Time Performed: 02:04:34 PTAGE: 51 years EKG: Sinus tachycardia Right bundle branch block Anterolateral infarct - age undetermined Compar ed to prior tracing no significant change Abnormal ECG PREVIOUS TRACING : 02/21/2017 19.04 DOCTOR: Emmanuel Lao Interpretating Date/Time 02/22/2017 09:51:40
--- NOTE | 2017-02-22 10:03 | EKG ---
Date Performed: 02/21/2017 Time Performed: 19:04:37 PTAGE: 51 years EKG: Sinus tachycardia Right bundle branch block Suspect old anteroseptal myocardial infarction No change from the prior tracing. ABNORMAL ECG PREVIOUS TRACING : 08/05/2015 05.06 DOCTOR: Emmanuel Lao Interpretating Date/Time 02/22/2017 10:01:51
[2017-02-22] MEDS ORDERED: IOHEXOL 350 MG/ML 100 ML BTL (for Cath Lab) OTHER ONE (10:16)
[2017-02-22] MEDS ORDERED: HEPARIN-NS/PF INJ 500 ML ONE (10:19)
[2017-02-22] MEDS ORDERED: MIDAZOLAM HCL 2 MG/2 ML VIAL ONE (10:20)
[2017-02-22] MEDS ORDERED: NITROGLYCERIN INJ 5 ML ONE (10:20)
[2017-02-22] MEDS ORDERED: HEPARIN SODIUM - IV 10,000 UNITS/10 ML VIAL ONE (10:20)
[2017-02-22] MEDS ORDERED: CLOPIDOGREL 300 MG TAB ONE (11:11)
--- NOTE | 2017-02-22 11:19 | CATHPROC ---
[facility] HIS Report Study Information Study Number Admission Scheduled Start Study Start [id number] Feb 21 2017 9:56PM 02/22/2017 Feb 22 2017 9:55AM [place] [facility] Cardiac Catheterization Admit Source Facility Department Other [facility] Physician and Clinical Staff Initial Laith Santiago Coat Operator Suni Guajardo,KEY Recorder Noelle Gaming,RT(R) Recorder Jayshree Noriega,RT(R) TECH2 Scrub Melvina Chandler,RT(R) (BS) Procedures Performed Procedure Location (Site) Vessel Name Coronary Angiograms LCA Left Coronary Coronary Angiograms RCA Right Coronary Equipment Time First Cook Description Size Mfg Part Number Used/Scraped TRANSDUCER, TRUWAVE [id number] 10:35 AGARWAL GUAJARDO * Used W/STOCKCOCK *[id number] *[id number] *[id number] 10:35 [employer] INDUSTRIES PACK, CCL CUSTOM * Used *[id number] 10:35 [employer] SUPPORT, ARTERIAL ADULT 97668 Used [id number] 10:35 [employer] PACER PEN, SKIN DUAL W/ RULER * Used *[id number] BAND, RADIAL COMPRESSION TR [id number] 11:05 [employer] 29CM Used LARGE 29 *[id number] SHEATH, FR6 RADIAL PRELUDE 10:35 [employer] FR 6 [id number] Used EASE 11CM [id number] 10:35 [employer] WIRE, EXCHANGE 260CM 3MMJ 260CM Used *[id number] 10:35 [employer] OMNIPAQUE, 350 MG, 150ML 150ML [id number] Used [id number] 10:35 [facility] BLANKET,WARM AIR CCL * Used *[id number] History: Current Medications Medication Dosage/Unit Route Frequency Last Date/Time Taken ASA Statins (any) History: Allergies Allergy Reaction No Known Allergies History: Risk Factors Family History of Hypertension Dyslipidemia Previous TX Previous Heart Failure Premature CAD Yes Yes Yes Yes Yes Prior Valve Prior PCI Prior CABG Surgery No No No Cerebrovascular Peripheral Artery Chronic Lung On Dialysis Diabetes Disease Disease Disease No No No No No History: Symptoms/Diagnosis Selection Items Angina-unstable History: Stress Tests Stress or Imaging Studies Performed No History: Other Current Smoker No Labs Hgb (g/dl) Hct (%) WBC (l/cumm) Platelets (thousands) 11.60-17.00 35.00-51.00 4.00-11.00 150.00-450.00 13.1 39.1 10.7 339 Glucose (mg/dl) BUN (mg/dl) Creatinine (mg/dl) BUN:Creatinine (1:x) 74.00-106.00 7.00-18.00 0.50-1.30 10.00-20.00 93 12 0.9 13.3 Na (meq/l) K (meq/l) 136.00-145.00 3.50-5.10 141 3.8 Medication Medication Total Dose (Bolus/Oral) Medication Total Dosage/Unit 1% XYLOCAINE 20 mL FENTANYL 50 mcg HEPARIN 5000 units NTG (IC) 200 mcg PLAVIX 600 mg VERSED 2 mg Medications (Bolus/Oral) Medication Time Given Dosage/Unit Administered By Reason FENTANYL 02/22/2017 10:36:49 AM 50 mcg Suni Guajardo Patient arrived on 50 mcg FENTANYL given by Suni Guajardo RN via Peripheral IV. Ordered by Laith Valentino. VERSED 02/22/2017 10:37:20 AM 2 mg Suni Guajardo Patient arrived on 2 mg VERSED given by Suni Guajardo RN via Peripheral IV. Ordered by St donna Valentino. 1% XYLOCAINE 02/22/2017 10:40:19 AM 20 mL Laith Valentino For pain 20 mL 1% XYLOCAINE given in lab by Laith Valentino in Right Radial via Subcutaneous. Ordered by Laith Valentino. Reason: For pain. HEPARIN 02/22/2017 10:48:30 AM 5000 units Suni Guajardo 5000 units HEPARIN given in lab by Suni Guajardo RN via Peripheral IV. Ordered by Laith Valentino . NTG (IC) 02/22/2017 10:48:50 AM 200 mcg Laith Valentino 200 mcg NTG (IC) given in lab by Laith Valentino in Right Radial via Intra-arterial. Ordered by Laith Valentino. PLAVIX 02/22/2017 11:11:12 AM 600 mg Suni Guajardo 600 mg PLAVIX given in lab by Suni Guajardo RN via Oral. Ordered by Laith Valentino. Medication (Drip) Medication Time Given Dosage/Unit Concentration/Unit Diluent (ml) Solution IV Solutions 02/22/2017 10:30:41 AM 0 mL (IV) NaCl .9 Patient arrived on IV Solutions in Left Antecubital via Peripheral IV. Pump/Drip Flow = 20 ml/hr usin g NaCl .9. Ordered by Laith Valentino. Initial Case Assessment Cardiovascular HR Rhythm NIBP Chest Pain 100 reg 123/97 0 Edema Present Skin color Skin None Normal Warm Circulatory - Right Pulses Dorsalis Pedis Femoral Radial 1 1 1 Scale (0,1,2,3,4,d) Scale (0,1,2,3,4,d) Neurological State Oriented to time-place- Alert Moves all extremities person Respiration - General Respiration Rate SpO2 (%) (B/min) 13 97 Final Case Assessment Cardiovascular HR Rhythm NIBP Chest Pain 105 reg 119/84 0 Edema Present Skin color Skin None Normal Warm Dry Neurological State Oriented to time-place- Alert Moves all extremities person Respiration - General Respiration Rate SpO2 (%) (B/min) 20 95 Chronological Log Time Study Chronological Log 10:16:40 Patient arrived via Bed. 10:16:41 Patient Name, D.O.B, / Armband Verified By R.N. 10:20:53 Pre-op and post- op instructions given; patient acknowledges understanding of instructions. 10:20:54 Verbal Stimulation=2 Physical Stimulation=2 Airway=2 Respiration=2 TOTAL=8. (0=absent, 1=li mited, 2=present) 10:21:08 Allens test performed on the left radial and ulnar artery by donna with a positive result Vitals capture started with the following parameters, Patient=Adult, Interval=5 min, Initial Pr wvjrrj=115 mmHg, 10:22:07 Deflation Rate=5 mmHg 10:23:00 Patient has been NPO for More than 6Hrs. 10:23:02 Skin Breakdown-none 10:23:11 DU=386 bpm, YOTQ=614/81 mmhg, SpO2=96 %, Resp=20 B/min, Pain=0, Kriss=10, Joaquin=2 10:23:21 Reference ECG taken 10:27:45 AE=783 bpm, DEUB=041/87 mmhg, SpO2=96.0 %, Resp=20 B/min, Pain=0, Kriss=10, Joaquin=2 10:30:28 A # 20 IV was noted in the Antecubital (left). Grade = 0 Patient arrived on IV Solutions in Left Antecubital via Peripheral IV. Pump/Drip Flow = 20 ml/h r using NaCl .9. Ordered 10:30:41 by Laith Valentino. 10:31:00 A # 20 IV was noted in the Antecubital (right). Grade = 0 saline locked Assessment: Initial Case, OJ=608 BPM, Rhythm=reg, AUAL=335/97 mmhg, Chest Pain=0, Edema=None, Color=Normal, Skin = Warm 10:31:17 Right Pulses: Prakash Ped=1, Femoral=1, Radial=1 Neurological: State=Alert, Ox3, POLLACK Respiration: Resp=13 B/min, SpO2=97 % 10:32:04 Right groin prepped with 2% chlorhexidine, and with a 3 min. waiting time. 10:32:07 Right Radial and groin(s) prepped with 2% chlorhexidine, and with a 3 min. waiting time. 10:32:17 MD paged 10:32:46 YI=258 bpm, BOLD=289/84 mmhg, SpO2=95 %, Resp=20 B/min, Pain=0, Kriss=10, Joaquin=2 10:34:42 MD arrived. 10:35:08 Pressure channel 1 zeroed. 10:36:24 The Recorder is being relieved by Jayshree Noriega, RT(R) TECH2. 10:36:49 Patient arrived on 50 mcg FENTANYL given by Suni Guajardo, RN via Peripheral IV. Ordere d by Laith Valentino. 10:37:20 Patient arrived on 2 mg VERSED given by Suni Guajardo, KEY via Peripheral IV. Ordered by Laith Valentino. 10:37:43 WS=447 bpm, PGCZ=147/87 mmhg, SpO2=95 %, Resp=14 B/min, Pain=0, Kriss=10, Joaquin=2 Time Out. Correct patient, correct procedure,correct physician, ,power injector loaded with con trast with surgical team 10:39:49 present. Time Out Concurred by MD, individual staff and TILE TRIMMER in procedure 10:40:15 Case Start 20 mL 1% XYLOCAINE given in lab by Laith Valentino in Right Radial via Subcutaneous. Ordered by Laith Valentino. 10:40:19 Reason: For pain. 10:42:46 RG=243 bpm, QTLI=024/85 mmhg, SpO2=95 %, Resp=18 B/min, Pain=0, Kriss=10, Joaquin=2 10:47:45 JZ=358 bpm, EFJI=345/81 mmhg, PuI8=608 %, Resp=20 B/min, Pain=0, Kriss=10, Joaquin=2 10:47:56 Access site was Radial Artery. 10:48:30 5000 units HEPARIN given in lab by Suni Guajardo RN via Peripheral IV. Ordered by Laith Dave. A SHEATH, FR6 RADIAL PRELUDE EASE 11CM FR 6 was advanced into the Radial (right) using the Perc utaneous 10:48:43 technique. 10:48:50 200 mcg NTG (IC) given in lab by Laith Valentino in Right Radial via Intra-arterial. Ordered by Laith Valentino. A JR 5.0 INFINITI CATHETER FR 6 was advanced over a wire. OMNIPAQUE, 350 MG, 150ML 150ML was us ed for 10:49:32 injections. Recorded Pressure: LV, AP=486, Condition=Condition 1 10:51:14 (Left Ventricle) LV 89/2/7 Recorded Pressure: LV, Ao, VH=981, Condition=Condition 1 10:51:47 (Left Ventricle) LV 92/3/8, (Aorta) Ao 90/64/77 10:52:44 UF=667 bpm, VMCQ=970/66 mmhg, SpO2=95 %, Resp=20 B/min, Pain=0, Kriss=10, Joaquin=2 10:53:26 The RCA was injected and visualized at various angles. OMNIPAQUE, 350 MG, 150ML 150ML used . Recorded Pressure: Ao, CJ=908, Condition=Condition 1 10:53:47 (Aorta) Ao 93/67/79 After removing the current catheter a JL 3.5 INFINITI CATHETER FR 6 was advanced over a WIRE, E XCHANGE 260CM 10:54:54 3MMJ 260CM. 10:57:48 EP=364 bpm, SEZA=859/68 mmhg, SpO2=95 %, Resp=20 B/min, Pain=0, Kriss=10, Joaquin=2 11:00:59 The LCA was injected and visualized at various angles. OMNIPAQUE, 350 MG, 150ML 150ML used . 11:02:39 Catheter was removed 11:02:45 RW=244 bpm, RBZC=685/84 mmhg, SpO2=94.0 %, Resp=20 B/min, Pain=0, Kriss=10, Joaquin=2 11:03:25 Case End 11:03:31 Catheter(s) removed without difficulty Radial Compression Device Used. 10 mLs of air placed in BAND, RADIAL COMPRESSION TR LARGE 29 2 9CM. Affected 11:03:36 hand 95 % O2 saturation. 11:04:30 No case complications noted. 11:04:32 Cine recording checked. 11:05:18 Bedside Report will be given. Assessment: Final Case, VF=872 BPM, Rhythm=reg, IHET=984/84 mmhg, Chest Pain=0, Edema=None, Color=Normal, Skin = Warm, Dry 11:05:22 Neurological: State=Alert, Ox3, POLLACK Respiration: Resp=20 B/min, SpO2=95 % 11:07:50 EDGC=599/70 mmhg, SpO2=94.0 %, Pain=0, Kriss=10, Joaquin=2 11:08:27 Vitals capture stopped. 11:11:12 600 mg PLAVIX given in lab by Suni Guajardo, KEY via Oral. Ordered by Laith Valentino. 11:14:40 Bedside Report will be given. 11:14:45 Contrast Scanned 11:14:49 CICU called. Spoke to KEYANA 11:15:13 Patient moved to carrier clinic End Study - Contrast Media Used In Study Contrast Total Opened (mL) Total Used (mL) Total Wasted (mL) Omnipaque 50 50 0 End Study - Maximum Contrast Load Max Contrast Load (mL) 577.8 End Study - Radiation Exposure Fluoro Time (minutes) 1.7 End Study - Patient Disposition Complications Transferred To Telemetry Bed
[2017-02-22] MEDS ORDERED: BACITRACIN OINT 0.9 GM PKT TOP ONE (12:00)
--- NOTE | 2017-02-22 12:38 | MA ---
cc: SARA BIRD DATE 02/22/2017 INDICATION [id number] NV. PROCEDURE PERFORMED 1. Fluoroscopy with interpretation 2. Coronary angiography 3. Left heart catheterization METHOD The risks, benefits and alternatives discussed us with the patient. The patient understood and consented to the procedure. The patient brought into the catheterization lab, placed on the catheterization table. Right wrist was prepped and draped in a sterile fashion. The right wrist was anesthetized with 2% lidocaine. The right radial artery was cannulated and a 6-Ivorian 7-cm sheath was placed without difficulty. LEFT HEART CATHETERIZATION A 6-Ivorian JR-5 catheter was advanced across the aortic valve without difficulty. Intraventricular hemodynamics measured at 92/3 mmHg. Left ventricular end-diastolic pressure of 8 mmHg. No significant aortic stenosis by transaortic valvular pullback gradient. CORONARY ANGIOGRAPHY 1. Left main coronary is angiographically normal. 2. Left anterior descending coronary has a 20% stenosis proximal to the stent at the ostium. There are two stents present in the proximal extending in the mid left anterior descending coronary artery which are widely patent. The distal left anterior descending coronary at the level of the apex does have 80% stenosis present but it is a small caliber size vessel. There is also very small caliber sized mid to distal diagonal branch which has 80% diffuse disease. 3. The left circumflex has a 30% proximal stenosis. There is an obtuse marginal branch was is a large caliber size and sub-branch which is a very small caliber size. The sub-branch has 80% tandem stenosis which is unchanged compared to prior angiography. 4. The right coronary is a dominant vessel giving rise to posterior descending branch. The right coronary has 30% stenosis throughout. The posterior descending branch has minor luminal irregularities. CONCLUSIONS 1. Branch vessel coronary disease with widely patent left anterior descending coronary stents. 2. Normal left-sided filling pressures. PLAN The patient will be monitored closely for any post procedural complications. Continue aggressive medical therapy with the initiation of long-acting nitrate. MD DEMETRIO Goodrich/KARRIE /11:13 AM /12:30 PM
[2017-02-22] MEDS ORDERED: PLAV75TA29 PO (15:03)
[2017-02-22] MEDS ORDERED: ISOS60TA PO (15:03)
[2017-02-22 15:48] LABS: APTT (PATIENT) 25.1 SEC (24.3-30.1)
--- NOTE | 2017-02-22 18:59 | EKG ---
Date Performed: 02/22/2017 Time Performed: 07:45:18 PTAGE: 51 years EKG: Sinus rhythm Right bundle branch block Since previous tracing, no significant change noted Anterolateral infarct - age undetermined Abnormal ECG PREVIOUS TRACING : 02/22/2017 02.04 DOCTOR: Emmanuel Lao Interpretating Date/Time 02/22/2017 18:58:14
[2017-02-22] MEDS ORDERED: ATORVASTATIN 80 MG TAB PO SCH (21:00)
[2017-02-23] MEDS ORDERED: ISOSORBIDE MONONITRATE 60 MG TAB PO SCH (07:00)
[2017-02-23] MEDS ORDERED: CLOPIDOGREL 75 MG TAB PO SCH (09:00)
== END 2017-02-22 16:00 | disposition home or self-care (01) | DRG 282 ==
LOC: NEPC 18:33 → NEDA 21:56 → HCIN 23:07
PROVIDERS: ADMIT Internal Medicine; ATTEND Internal Medicine
PROC: B211YZZ Fluoroscopy of Multiple Coronary Arteries using Other Contrast (ICD-10-PCS; 2017-02-22)
PROC: 4A023N7 Measurement of Cardiac Sampling and Pressure, Left Heart, Percutaneous Approach (ICD-10-PCS; principal; 2017-02-22 10:00)
DX: I21.4 Non-ST elevation (NSTEMI) myocardial infarction (principal); F20.9 Schizophrenia, unspecified; I10 Essential (primary) hypertension; F31.9 Bipolar disorder, unspecified; I25.5 Ischemic cardiomyopathy; I25.10 Atherosclerotic heart disease of native coronary artery without angina pectoris; E78.5 Hyperlipidemia, unspecified; F41.9 Anxiety disorder, unspecified; Z79.82 Long term (current) use of aspirin; Z95.5 Presence of coronary angioplasty implant and graft
CPT/HCPCS: 71010; 80048; 82550; 83735; 84484; 85025; 85610; 85730; 93005; 93454; C1769; C1893; J1644; J2250; J3010; J7030; Q9967

== ENCOUNTER 2017-08-27 19:19 | Emergency (ER) | payer MEDICARE, OTHER ==
[~2017-08-27] VITALS: Ht 177.8 cm; Wt 106.7 kg
[~2017-08-27 19:19] MED LIST changes: +ASPI-516 CHEW; -ASPI81CH CHEW; -ATOR1TAB18 PO; +ATOR80TA45 PO; -AZIT500T2 PO; +BENZ0.5T PO; -BENZ2TAB PO; +ISOS60TA PO; +PERP8TAB16 PO; -PERP8TAB4 PO; +PLAV75TA29 PO; -PRED-503 PO; -PRED20 PO; -PRIL20CA9 PO
[2017-08-27 19:34] VITALS: BP 124/75; PULSE 115; RESP 18; TEMP 99.7; O2SAT 97
[2017-08-27] MEDS ORDERED: ZOLO100T PO (19:50)
[2017-08-27] MEDS ORDERED: BUSP15TA PO (19:50)
[2017-08-27] MEDS ORDERED: BENZ100 PO (20:21)
[2017-08-27] MEDS ORDERED: GUAI1LIQ13 PO (20:21)
--- NOTE | 2017-08-27 20:25 | PD ---
HPI Chief Complaint: Cold / Flu Symptoms Time Seen by Provider: 19:54 Travel History International Travel<30 days: No Contact w/Intl Traveler<30days: No Traveled to known affect area: No History of Present Illness HPI 52-year-old male presents to the ED for evaluation of 4 day history of sinus congestion, clear rhinorrhea, body aches, cough occasionally productive of yellow mucus and mild sore throat. Onset gradual. Patient denies fever, chills , nausea, vomiting, wheezing, history of environmental allergies. He denies receiving this years flu shot. He denies sick contacts. He states he's been treating at home with some leftover codeine cough syrup and that he had from a previous cough with some improvement of symptoms. PFSH Past Medical History Hx Anticoagulant Therapy: Yes (81 ASA) Arthritis: No Asthma: No Blood Disorders: No Bipolar Disorder: Yes Anxiety: Yes Depression: Yes Heart Rhythm Problems: No Cancer: No Cardiac Catheterization: Yes (STENTS X2) Cardiovascular Problems: Yes High Cholesterol: Yes Chest Pain: No Congestive Heart Failure: No COPD: No Cerebrovascular Accident: No Diabetes: No Diminished Hearing: No Endocrine: No Gastrointestinal Disorders: Yes GERD: No Genitourinary: No Headaches: No Hepatitis: No Hiatal Hernia: No Hypertension: No Kidney Stones: No Musculoskeletal: No Neurologic: No Psychiatric: Yes (DEPRESSION, BIPOLAR) Reproductive: No Respiratory: No Migraines: No Myocardial Infarction: Yes (X1 2015) Renal Failure: No Schizophrenia: Yes Seizures: No Sleep Apnea: No Ulcer: No Tetanus Vaccination: > 5 Years Influenza Vaccination: No Past Surgical History Abdominal Surgery: No Appendectomy: No Cardiac Surgery: No Cholecystectomy: No Ear Surgery: No Endocrine Surgery: No Eye Surgery: No Genitourinary Surgery: No Gynecologic Surgery: No Neurologic Surgery: No Oral Surgery: No Thoracic Surgery: No Other Surgery: No Social History Alcohol Use: No Tobacco Use: No Substance Use: No Allergies-Medications (Allergen,Severity, Reaction): Coded Allergies: No Known Allergies (Verified , 02/21/17) Reported Meds & Prescriptions Reported Meds & Active Scripts Active Tessalon Perles (Benzonatate) 100 Mg Cap 200 Mg PO TID PRN Coditussin AC Liq (Guaifenesin-Codeine Liq) 200-10 Mg/5ML Liqd 5 Ml PO Q4H PRN Plavix (Clopidogrel Bisulfate) 75 Mg Tab 75 Mg PO DAILY 30 Days Reported Buspirone (Buspirone HCl) 15 Mg Tab 15 Mg PO BID Zoloft (Sertraline HCl) 100 Mg Tab 100 Mg PO DAILY Bupropion HCl ER 24 HR (Bupropion HCl) 150 Mg Tab 150 Mg PO DAILY Atorvastatin (Atorvastatin Calcium) 80 Mg Tab 80 Mg PO HS Aspirin 81 Mg Chew 81 Mg CHEW DAILY Review of Systems Except as stated in HPI: all other systems reviewed are Neg Physical Exam Narrative GENERAL: Well-nourished, well-developed white male in no acute distress. SKIN: Warm and dry. HEAD: Normocephalic. Atraumatic. EYES: No scleral icterus. No injection or drainage. PERRLA. EOMI. ENT: Pearly arreola tympanic membranes bilaterally. Nasal mucosa is moist. Oropharynx without erythema, edema or exudate. NECK: Supple, trachea midline. No JVD or lymphadenopathy. CARDIOVASCULAR: Regular rate and rhythm without murmurs, gallops, or rubs. RESPIRATORY: Breath sounds clear and equal bilaterally. No accessory muscle use. Occasional cough. GASTROINTESTINAL: Abdomen soft, non-tender, nondistended. + Bowel sounds MUSCULOSKELETAL: No cyanosis, or edema. BACK: Nontender without obvious deformity. No CVA tenderness. Data Data Last Documented VS Vital Signs Date Time Temp Pulse Resp B/P (MAP) Pulse Ox O2 Delivery O2 Flow Rate FiO2 08/27/17 19:34 99.7 115 18 124/75 (91) 97 Orders Orders Ed Discharge Order (08/27/17 20:27) [facility] Medical Decision Making Medical Screen Exam Complete: Yes Emergency Medical Condition: Yes Differential Diagnosis Viral syndrome versus cough versus bronchitis versus influenza versus pneumonia other Narrative Course 52-year-old male presents to the ED for evaluation of 4 day history of sinus congestion, clear rhinorrhea, body aches, cough occasionally productive of yellow mucus and mild sore throat. He denies receiving this years flu shot. Vitals reviewed. Patient is mildly tachycardic on presentation. Physical exam reveals a nontoxic-appearing white male in no acute distress. ENT exam is unremarkable. Chest CTAB. Patient is requesting treatment for his cough. He is prescribed a short course of Tessalon Perles and Coditussin cough syrup. He is instructed to use caution with this cough syrup as antidepressants used concurrently can increase the strength of the codeine. The patient has indicated understanding of instructions. He states that he has taken the cough syrup in the past without any problems. We discussed reasons to return to the ED. He is stable and discharged home. Diagnosis Primary Impression: Viral syndrome Additional Impression: Cough Referrals: Primary Care Physician Patient Instructions: Acute Cough (ED), General Instructions, Viral Syndrome ( DC) Additional Instructions: Rest, hydrate. Push fluids such as sports drinks, Pedialyte, popsicles, clear broth. Continue with symptomatic treatment. Using OTC medication containing a decongestant (MUCINEX D) may help to improve your symptoms. Alternating Motrin and Tylenol every 4-6 hours as needed for continued fever. Increase handwashing frequently to avoid the spread of the virus to other family members and the community. Disinfect commonly touched surfaces such as light switches, microwaves, remote controls. Replace toothbrush at the end of this illness. Follow-up with the primary care provider this week. Return to the ED for any urgent or emergent medical condition. Med/Other Pt SpecificInfo: Prescription(s) given Scripts Benzonatate (Tessalon Perles) 100 Mg Cap 200 MG PO TID Y for COUGH, #20 CAP 0 Refills Prov: Sanchez Beltran MD 08/27/17 Guaifenesin-Codeine Liq (Coditussin AC Liq) 200-10 Mg/5ML Liqd 5 ML PO Q4H Y, #120 ML 0 Refills Prov: Sanchez Beltran MD 08/27/17 Disposition: 01 DISCHARGE HOME Condition: Stable Darline Barajas Aug 27, 2017 20:24
== END 2017-08-27 20:38 | disposition home or self-care (01) ==
LOC: PHEFT 19:19
DX: B34.9 Viral infection, unspecified (principal); R05 Cough; J02.9 Acute pharyngitis, unspecified; F31.9 Bipolar disorder, unspecified; E78.00 Pure hypercholesterolemia, unspecified; I25.2 Old myocardial infarction; F20.9 Schizophrenia, unspecified
CPT/HCPCS: 99284

== ENCOUNTER 2017-09-23 15:56 | Emergency (ER) | payer MEDICARE ==
[~2017-09-23] VITALS: Ht 177.8 cm; Wt 101.0 kg
[~2017-09-23 15:56] MED LIST changes: -ALBUAER3 INH; -BENZ0.5T PO; +BUSP15TA PO; +GUAI1LIQ13 PO; -ISOS60TA PO; -PERP8TAB16 PO; -SERT-129 PO; +ZOLO100T PO
[2017-09-23 16:04] VITALS: BP 117/72; PULSE 103; RESP 16; TEMP 99; O2SAT 96
[2017-09-23] MEDS ORDERED: BENZ0.5T PO (16:21)
[2017-09-23] MEDS ORDERED: PERP8TAB16 PO (16:25)
[2017-09-23] MEDS ORDERED: AMOX875T PO (16:48)
--- NOTE | 2017-09-23 16:49 | PD ---
HPI Chief Complaint: ENT Complaint Time Seen by Provider: 16:37 Travel History International Travel<30 days: No Contact w/Intl Traveler<30days: No Traveled to known affect area: No PFSH Past Medical History Hx Anticoagulant Therapy: Yes (plavix and asa 81mg) Arthritis: No Asthma: No Blood Disorders: No Bipolar Disorder: Yes Anxiety: Yes Depression: Yes Heart Rhythm Problems: No Cancer: No Cardiac Catheterization: Yes (STENTS X2) Cardiovascular Problems: Yes (htn on meds, [place] , stents x 2) High Cholesterol: Yes Chest Pain: No Congestive Heart Failure: No COPD: No Cerebrovascular Accident: No Diabetes: No Diminished Hearing: No Endocrine: No Gastrointestinal Disorders: Yes GERD: No Genitourinary: No Headaches: No Hepatitis: No Hiatal Hernia: No Hypertension: No Kidney Stones: No Musculoskeletal: No Neurologic: No Psychiatric: Yes (DEPRESSION, BIPOLAR) Reproductive: No Respiratory: No Migraines: No Myocardial Infarction: Yes (X2) Renal Failure: No Schizophrenia: Yes Seizures: No Sleep Apnea: No Ulcer: No Tetanus Vaccination: > 5 Years Influenza Vaccination: No Past Surgical History Abdominal Surgery: No Appendectomy: No Cardiac Surgery: No Cholecystectomy: No Ear Surgery: No Endocrine Surgery: No Eye Surgery: No Genitourinary Surgery: No Gynecologic Surgery: No Neurologic Surgery: No Oral Surgery: No Thoracic Surgery: No Other Surgery: No Social History Alcohol Use: No Tobacco Use: No Substance Use: No Allergies-Medications (Allergen,Severity, Reaction): Coded Allergies: No Known Allergies (Verified Adverse Reaction, Unknown, 09/23/17) Reported Meds & Prescriptions Reported Meds & Active Scripts Active Plavix (Clopidogrel Bisulfate) 75 Mg Tab 75 Mg PO DAILY 30 Days Reported Perphenazine 8 Mg Tablet 8 Mg PO HS Benztropine (Benztropine Mesylate) 0.5 Mg Tab 2 Mg PO HS Zoloft (Sertraline HCl) 100 Mg Tab 100 Mg PO DAILY Bupropion HCl ER 24 HR (Bupropion HCl) 150 Mg Tab 150 Mg PO DAILY Atorvastatin (Atorvastatin Calcium) 80 Mg Tab 80 Mg PO HS Aspirin 81 Mg Chew 81 Mg CHEW DAILY Data Data Last Documented VS Vital Signs Date Time Temp Pulse Resp B/P (MAP) Pulse Ox O2 Delivery O2 Flow Rate FiO2 09/23/17 16:04 99.0 103 16 117/72 (87) 96 MDM Medical Decision Making Medical Screen Exam Complete: Yes Emergency Medical Condition: Yes Differential Diagnosis Otitis media, otitis externa, dental abscess Narrative Course This is a 52-year-old male with right ear pain times one day. His right TM erythema, bulging, loss of landmarks. No mastoid tenderness. He is nontoxic appearing. He'll be treated with amoxicillin. Diagnosis Primary Impression: Otitis media Qualified Codes: H66.90 - Otitis media, unspecified, unspecified ear Referrals: Primary Care Physician Additional Instructions: Amoxicillin as prescribed. Tylenol or ibuprofen for pain. Follow-up with her primary doctor. Scripts Amoxicillin (Amoxicillin) 875 Mg Tab 875 MG PO BID for Infection for 10 Days, #20 TAB 0 Refills Prov: Mirtha Lee 09/23/17 Disposition: 01 DISCHARGE HOME Condition: Stable Mirtha Lee Sep 23, 2017 16:49
== END 2017-09-23 16:56 | disposition home or self-care (01) ==
LOC: PHEFT 15:56
DX: H66.90 Otitis media, unspecified, unspecified ear (principal); F31.9 Bipolar disorder, unspecified; E78.00 Pure hypercholesterolemia, unspecified; I25.2 Old myocardial infarction; Z95.5 Presence of coronary angioplasty implant and graft; Z79.01 Long term (current) use of anticoagulants; Z79.82 Long term (current) use of aspirin
CPT/HCPCS: 99283